=== PATIENT | female | born 2000 | race Hispanic/Latino ===

== ENCOUNTER 2025-11-10 10:14 | Emergency (ER) | payer SELFPAY ==
[2025-11-10 10:16] VITALS: BP 102/64
[2025-11-10 10:38] LABS: Hematocrit 35.9 % (37.0-47.0); Hemoglobin 12.2 g/dL (12.0-16.0); Mean Corp Hgb Conc. 34.0 g/dL (33.0-37.0); Mean Corpuscular Volume 89.5 fL (81.0-99.0); Nucleated Red Blood Cells % 0 %; Platelet Count 259 10^3/uL (130-400); Red Cell Dist. Width 11.9 % (11.5-14.5)
[2025-11-10 11:11] LABS: HCG, Serum Qualitative Screen Negative
[2025-11-10 11:28] LABS: ALT (SGPT) 10 U/L (0-35); AST (SGOT) 16 U/L (14-36); Albumin 4.4 g/dl (3.5-5.0); Alkaline Phosphatase 47 U/L (38-126); Blood Urea Nitrogen 7 mg/dl (7-17); Calcium 9.4 mg/dl (8.4-10.2); Carbon Dioxide 27 mmol/L (22-30); Chloride 106 mmol/L (98-107); Glucose 87 mg/dl (70-99); Lipase 107 U/L (23-300); Potassium 4.2 mmol/L (3.5-5.1); Sodium 137 mmol/L (135-145); Total Protein 7.2 g/dl (6.3-8.2); eGFR > 60.00
--- NOTE | 2025-11-10 12:44 | ED.GENMED ---
History of Present Illness
General
Chief Complaint: Abdominal Symptoms
Source: patient
Exam Limitations: none
Time Seen by Provider: 11/10/25 12:30
History of Present Illness
History of Present Illness:
25-year-old female with history of cholecystectomy presents with 2 days worth of abdominal swelling and discomfort. She is nauseous without vomiting. Last bowel movement was yesterday. No urinary fever. Her gallbladder was removed 4 years ago in
[place]. No chest pain or shortness of breath. No other complaints at this time.
Phy Exam
Physical Exam
Physical Exam:
General: Well appearing female NAD
HEENT: NC/AT
Heart: RRR, no murmurs
Lungs: CTA bilaterally]
ABd: soft, mildly distended and tender to right mid abdomen.
Ext: no cyanosis or edema.
skin: warm, no rash
Course
Orders/Labs/Results
Orders:
Orders
11/10/25 10:20
Test Result ONCE
11/10/25 10:26
Complete Blood Count/With Diff Urgent
Comprehensive Metabolic Panel Urgent
HCG, Serum Qualitative Screen Urgent
Lipase Urgent
11/10/25 12:43
CT Abd/pelvis W Iv Cont Urgent
Comment:
Reason For Exam: abdominal pain, swelling, h/o cholecystectomy
Abnormal Lab Results
11/10/25
10:26
RBC 4.01 L 10^6/uL
(4.20-5.40)
Hct 35.9 L %
(37.0-47.0)
11/10/25 10:26
11/10/25 10:26
Vital Signs
Initial and Last Documented VS:
Initial Vital Signs
Temp Pulse Resp BP Pulse Ox
98.0 F 61 16 102/64 100
11/10/25 10:16 11/10/25 10:16 11/10/25 10:16 11/10/25 10:16 11/10/25 10:16
Last Documented Vital Signs
Temp Pulse Resp BP Pulse Ox
98.0 F 61 16 102/64 100
11/10/25 10:16 11/10/25 10:16 11/10/25 10:16 11/10/25 10:16 11/10/25 12:46
MDM/Problems Addressed
Differential Diagnosis Includes:
Patient here with abdominal discomfort and bloating. Prior history of cholecystectomy. Question constipation she is quite tender to the right side of the abdomen, question appendicitis versus bowel obstruction
Labs reviewed without significant finding. CT ordered
*Pulse Oximetry
SaO2: 100
Oxygen Mode of Delivery: Room air
Patient hypoxic: no
*Critical Care Note
Total Time (30-74mins, 75-104mins- exclusive of procedures): Not Applicable
Update Note
Update Note:
CT reviewed demonstrates moderate colonic stool burden to suggest constipation but no other acute finding. Recommended MiraLAX. No indication for admission. Stable for discharge
ED Attending Note
-
Portions of this chart may have been created with voice recognition software.� Occasional wrong word or��sound alike� substitutions may have occurred due to the inherent limitations of voice recognition software.
Discharge Plan
Departure
Patient Disposition: Home (Routine Discharge)
Date of Disposition: 11/10/25
Time of Disposition: 14:26
Patient with high blood pressure during this ER visit?: No
Discharge Problem:
Constipation
Instructions: Constipation, Adult (DC)
Referrals:
NONE,* [Family Provider, Internal Medicine]
Activity Restrictions/Additional Instructions:
Use MiraLAX daily. Return if worse otherwise follow-up with your doctor
Interventions
Interventions:
*Risk Screen - Suicide Last Done: 11/10/25 13:14
*General Assessment Last Done: 11/10/25 13:14
*Neglect/Abuse Screening Last Done: 11/10/25 13:14
*ED COVID-19 Vaccine History Last Done: 11/10/25 13:14
*ED Influenza Vaccine History Last Done: 11/10/25 13:14
[facility] Fall Risk Assessment Tool Last Done: 11/10/25 12:35
PH-Eqhtsf-Bzwxsjutuo Assessment Last Done: 11/10/25 12:35
Discharge Date and Time
Print Language: ANGUILLAN
== END 2025-11-10 14:36 | disposition home or self-care (01) ==
LOC: EMR 10:14
PROVIDERS: Emergency Medicine; EMERGENCY PHYSICIAN Emergency Medicine
DX: K59.00 Constipation, unspecified (principal)
CPT/HCPCS: 99284; 74177; 80053; 83690; 84703; 85025; Q9967